=== PATIENT | female | born 1940 | race Caucasian/White ===

== ENCOUNTER 2016-10-15 15:47 | Inpatient (IN) | payer MEDICARE, OTHER ==
[~2016-10-15] VITALS: Ht 160 cm; Wt 60.3 kg
--- NOTE | ~2016-10-15 | PR ---
[place], [place] PROGRESS NOTE [facility]: [facility]BER [facility] [id number] UNIT #: [id number] ROOM: 317 DOCTOR: LIYA COLE MD BIRTHDATE: [birth year] DOS: 10/18/2016 CHIEF COMPLAINT: "I don't know how I wound up here in the hospital, but I would like to leave." SUMMARY OF THE VISIT: The patient was interviewed in the dining area. She reports that she has absolutely no idea how she wound up here in the hospital stating that she was perfectly content at [facility]. A review of the chart indicates, however, that the patient was voicing suicidal ideation with a plan. She seemed totally oblivious to this fact, as I engaged her in conversation this morning and was fixated on being able to return back to [place] as soon as possible. She does report that she is sleeping well and eating well and denies any medication side effects. MENTAL STATUS: She is alert and oriented with time gaps. Mood does seem to be fairly euthymic. Affect is appropriate. There are no symptoms of hypomania or chelsea. There are no overt auditory or visual hallucinations. No delusions are present. Short term memory has gaps. PLAN: I have already started to taper of her Xanax. I will go ahead and continue this taper bringing her from 0.5 mg twice daily to 0.25 mg 3 times a day and continue to progress with the taper and ultimate discontinuation of the Xanax. Maintain her other psychotropics. Engage in individual and soto milieu activity with the plan then to return to [facility] when stable. LIYA COLE MD CM:PNTRANS [id number] LIYA COLE MD 10/18/16 1044 interface
--- NOTE | ~2016-10-15 | WRIGHTHP ---
[place], [place] PATIENT HISTORY AND PHYSICAL EXAM NAME: LEROY WEBER [facility] #: [id number] UNIT #: [id number] ROOM: 317 DOCTOR: YULIA HAWTHORNE BIRTHDATE: [birth year] DOS: 10/15/2016 HISTORY OF PRESENT ILLNESS: This is a 75-year-old female from a local correction admitted here for suicidal ideation. She told the Emergency Room physician that she was to be admitted to the Behavioral Health Unit because of back pain. The patient was very sedated, having difficulty staying awake for proper interview, complains of pain everywhere, history of long-term high dose opioid dependence, coronary artery disease, diabetes, congestive heart failure. PAST MEDICAL HISTORY: Includes anxiety, CHF, chronic pain, COPD, dementia, GERD, hyperlipidemia, hypertension, hypothyroidism, iron deficient anemia, peripheral artery disease, stage 3 chronic kidney disease, type 2 diabetes. DIAGNOSES: Suicidal ideation secondary to major depression and pain. It should be noted the patient was originally has a morphine pain pump or pain ball and when she went to have it refilled, she told that she did not want it refilled, and I think this was the starting of her behaviors. The patient also gets Percocet 325/5, hydrocodone with ibuprofen 7.5/200 and OxyContin along with Xanax and the morphine pump. MENTAL STATUS: The patient is alert and oriented to person, place, approximate time. Mood is very depressed. She is easily irritable. When someone goes to touch her, she screams out in pain. I do not deny that she may be in pain, but I believe that she is embellishing the extent of it at this point in time. There are no overt signs of auditory or visual hallucinations, delusions, paranoia, chelsea or hypomania. Overall, I know she has a diagnosis of dementia, but right now it appears that her memory is intact. I asked her what made her make suicidal statements, and she just said because "I am stupid, I am in pain, and I should not have said no to the morphine and now in this predicament". She then asked if I would fill her morphine pump, and I advised her that the pump could not be filled on this unit, and she then stated that she did not need to be here. She just needs to be discharged so that she can go and have that done. PLAN: We currently have her it looks like the medical doctors start her back on the OxyContin. We have her on vitamin D 50,000 international units. She is also on Remeron 15 mg at bedtime. We have done p.r.n. Vistaril and Geodon. We have her on Namenda 10 mg b.i.d., Exelon 13.3 mg at bedtime and Xanax q.8 hours. I did advise nursing to monitor this and try not to get with the narcotic pain meds at this point in time. With her increase in her BUN and creatinine, she is probably not clearing the meds very well either. The patient stated that she slept fine. We will continue to monitor. I will adjust medications accordingly as needed. [place], [place] PATIENT HISTORY AND PHYSICAL EXAM NAME: LEROY WEBER UNIT #: [id number] ROOM: [facility] DOCTOR: YULIA HAWTHORNE BIRTHDATE: [birth year] MERARY HAWTHORNE CNP CM:HISPHYS:PATIENT HISTORY AND PHYSICAL EXAMINATION [id number] YULIA HAWTHORNE 10/16/16 1205 interface
--- NOTE | ~2016-10-15 | DS ---
[place], [place] DISCHARGE SUMMARY NAME: LEROY WEBER [facility] #: [id number] UNIT #: [id number] ROOM: 317 DOCTOR: LIYA COLE MD BIRTHDATE: [birth year] DOS: 10/19/2016 CHIEF COMPLAINT: "I just might as well be " HISTORY OF PRESENT ILLNESS: This is a 75-year-old white female known to me from a previous psychiatric admission here as well as her stay at [facility] in [place], [place]. The patient is admitted now due to worsening depression with suicidal ideation and a plan. Apparently, the patient was to have her morphine pump filled, but because her daughter left for out of town, the patient became very irate and angry and refused to have that done. This caused an increase in pain as well as some opiate withdrawal symptoms causing her to feel totally out of control and voicing a wish that she were and also stating that she would actively take her life because of the severity of her symptoms, it was felt that an inpatient evaluation was warranted. PAST MEDICAL HISTORY: Remarkable for long-term high dose opioid dependence, coronary artery disease, diabetes, congestive heart failure, COPD, dementia, GERD, hyperlipidemia, hypothyroidism, iron deficiency anemia, chronic kidney disease stage III and diabetes. SUMMARY OF HOSPITAL COURSE: The patient was admitted to the unit where she was restarted back on her opioid, this did cause her to feel much better rather quickly. She maintained on her Remeron 15 mg at bedtime, Exelon 13.3 mg at bedtime, Namenda 10 mg twice daily, Xanax was tapered gradually during her stay to lessen her overall use of addictive agents and the Xanax was brought down from 0.5 mg 3 times a day to 0.25 mg 3 times a day. She tolerated this taper well exhibiting no withdrawal symptoms and stating that there was no increase in her anxiety level. The patient did have a slow and steady improvement while on the unit, voicing improved sleep and appetite and also voicing positive plans for the future. She very convincingly reported that she likes it at [place] and was anxious to go back there. She was discharged then on 10/19/2016 to return back to [place] where I will follow her upon her return there. MENTAL STATUS AT DISCHARGE: The patient was alert and oriented to person, place, and relatively close to time. Mood was strongly trending towards euthymia and affect was more appropriate. There are no symptoms suggestive of chelsea or hypomania. There were no overt auditory or visual hallucinations. No delusions, no paranoia. Short term memory had some mild gaps, otherwise she was intact. FINAL DIAGNOSES: Major depression, recurrent, severe, dysthymic disorder. PLAN: All of her prescriptions have been printed and will be sent with her I will follow her upon her return to [facility] in [place]. [place], [place] DISCHARGE SUMMARY NAME: LEROY WEBER UNIT #: [id number] ROOM: 317 DOCTOR: LIYA COLE MD BIRTHDATE: [birth year] LIYA COLE MD CM:DISCHARG [id number] LIYA COLE MD 10/19/16817 interface
--- NOTE | ~2016-10-15 | PR ---
[place], [place] PROGRESS NOTE [id number] UNIT #: [id number] ROOM: 317 DOCTOR: YULIA HAWTHORNE MERARY BIRTHDATE: [birth year] DOS: 10/17/2016 SUMMARY OF VISIT: The patient assessed in her room where she was getting up for the morning. I had monitored her working with soto milieu. She did pivot appropriately into the wheelchair without moaning or groaning. Nurses' notes it is pretty much whether she is in a wheelchair or bed. She sleeps all day. It should be noted that she is not nearly on as much narcotics that she was at home. Currently receiving OxyContin here, but no [place] or Percocet. I am going to change her Xanax from q. 8 hours to b.i.d. and attempt to wean this. I do not like the benzos being mixed with the narcotics and since she is sleeping all the time, both of them have sedating qualities. She is tolerating all other medications. There is a family dynamic. Apparently, the daughters calling the unit multiple times talking in length about things in the past, basically wanting to be the patient's guardian, POA in control of everything, but the patient is her own person, so there are some family dynamic issues there. She did also mention she warned her mom deemed incompetent. She was advised that she needs to take this up with the [facility], so that the patient can be properly assessed if they feel it is appropriate. The daughter is also advising me when I am to discharge the patient, today or tomorrow. At this point in time, the patient is doing well. There is some depression. I do not know if it is long-term or if it rerouted in her pain. 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 I did advise her yesterday that she would not receive a morphine pump on this unit nor would refill her. It is my understanding she has some kind of morphine pump implanted. MENTAL STATUS: She is alert and oriented to person, place, approximate time, mood, trending towards euthymic. I believe that she sleeps all day because ____ where she comes from and that is what she does. She has been advised that I needed her up and moving around. I do not want her to get pneumonia, I do not want to get a bed sore. I need to see what her limitations are and what she is actually capable of doing for herself. I am not changing any medications today other than decreasing her Xanax and my goal for that would be to actually to wean it off since she is on. It looks like at home or at the [facility], she was on OxyContin, [place]port, Percocet and the morphine pump. We will continue to monitor, engage in individual and soto milieu therapy and will discharge when we feel that she is appropriately stable. [place], [place] PROGRESS NOTE NAME: TIALEROY R UNIT #: [id number] ROOM: [facility] DOCTOR: YULIA HAWTHORNE BIRTHDATE: [birth year] MERARY HAWTHORNE CNP CM:PNTRANS [id number] YULIA HAWTHORNE 10/17/16 1146 interface
[~2016-10-15 15:47] MED LIST: ADVAIR INH; ALDACTONE25 MG PO; AMOXICILLIN500 M2 PO; ANTIVERT12.5 MG PO; BACTROBAN22 TP; BREO ELLIPTA 11 EACH INH; CELEXA10 MG PO; CIPRO500 MG PO; CLONIDINE0.2 MG PO; COREG3.125 MG PO; COREG6.25 MG PO; DESYREL100 MG PO; DITROPAN XL5 MG PO; DOK100 MG PO; DULCOLAX STOOL100 MG PO; DUONEB 3 MG/3 ML3 M1 INH; ENDOCET 325 MG PO; EXEL13.31 T; EXELON4.6 MG/24 TD; EXELON9.5 MG/24 TD; FERREX 150150 MG PO; FLONASE ALLERG9.9 ML NAS; FUROSEMIDE20 M1 PO; GUAIFENESIN600 MG PO; HUMALOG100 U/ML SC; HYDROCODONE BIT1 T11 PO; IRON325 M1 PO; Ipratropium Brom3 ML IH; KCL PO; LACTULOSE20 GM/30 M PO; LANTUS100 U/ML SC; LASIX20 MG PO; LASIX40 MG PO; LEVOFLOXACIN500 MG PO; LIDOCAINE OINTMENT T; LIDODERM 5% PATC1 EA T; LINZESS145 MC1 PO; LISINOPRIL5 MG PO; MIRALAX POWDER17 G1 PO; MIRALAX17 GM PO; MORPHINE PUMP; Motrin,Rufen800 MG PO; NAMENDA XR28 M1 PO; NAMENDA10 MG PO; NASONEX0.05 MG/AC NAS; NITRO PO; OXYGEN NAS; OXYMORPHONE HYD10 M1 PO; PERCOCET 650 MG1 TA1 PO; PLAVIX75 M1 PO; PLAVIX75 MG PO; PRAVACHOL40 MG PO; PREDNISONE10 MG PO; PREVACID30 M1 PO; PRILOSEC20 M1 PO; PROTONIX TR40 MG PO; SAVELLA50 MG PO; SOMA350 MG PO; SPIRIVA INH; STOOL SOFT60 MG/15 M PO; SYMBICORT1 AE1 INH; SYNTHROID0.025 MG PO; Synthroid,Levo50 MCG PO; TRAZODONE100 MG PO; VICOPROFEN PO; VITAMIN C500 M1 PO; VITAMIN D50000 I3 PO; VITAMIN D50000 UNIT PO; XANAX0.25 MG PO; XANAX1 MG PO; ZESTRIL5 MG PO; ZOLOFT100 MG PO; ZYVOX600 MG PO; [UNRECOGNIZED DRUG - OTHER] PO
[2016-10-15] MEDS ORDERED: HUMALOG100 U/ML SC (17:53)
[2016-10-15] MEDS ORDERED: Zofran4 MG PO (18:04)
[2016-10-15] MEDS ORDERED: XANAX0.5 MG PO (18:06)
[2016-10-15] MEDS ORDERED: OXYCONTIN10 M1 PO (18:07)
[2016-10-15] MEDS ORDERED: ADVAIR 500/501 E1 INH (18:09)
[2016-10-15] MEDS ORDERED: LASIX20 MG PO ×2 (18:15→18:16)
[2016-10-15] MEDS ORDERED: LACTULOSE20 GM/30 M PO (18:20)
[2016-10-15] MEDS ORDERED: MELATONIN3 MG PO (18:23)
[2016-10-15] MEDS ORDERED: CLARITIN10 MG PO (18:23)
[2016-10-15] MEDS ORDERED: METFORMIN ER500 MG PO (18:25)
[2016-10-15] MEDS ORDERED: SINGULAIR10 M1 PO (18:26)
[2016-10-15] MEDS ORDERED: PROTONIX40 MG PO (18:31)
[2016-10-15] MEDS ORDERED: POTASSIUM CHLO20 ME3 PO (18:34)
[2016-10-15] MEDS ORDERED: HYDROCODONE-IB1 EACH PO (18:38)
[2016-10-15] MEDS ORDERED: PERCOCET 325 MG1 TA5 PO (18:43)
[2016-10-15 19:40] VITALS: BP 118/68
[2016-10-15 21:38] VITALS: BP 118/68
[2016-10-16 07:14] LABS: BASO % 0.3 % (0.0-1.0); EOS # 0.2 10*3/uL (0.0-0.4); EOS % 2.1 % (1.0-4.0); HEMATOCRIT 33.6 % (37.0-47.0); HEMOGLOBIN 11.3 g/dl (12.0-16.0); LYMPH # 1.8 10*3/uL (1.3-4.4); LYMPH % 25.3 % (27.0-41.0); MEAN CELL VOLUME 85.9 fl (81.0-99.0); MEAN CORPUSCULAR HGB 28.9 pg (27.0-31.0); MEAN CORPUSCULAR HGB CONC 33.6 g/dl (33.0-37.0); MEAN PLATELET VOLUME 11.3 fl (9.6-12.3); MONO # 0.5 10*3/uL (0.1-1.0); MONO % 6.3 % (3.0-9.0); NEUT # 4.7 10*3/uL (2.3-7.9); NEUT % 65.6 % (47.0-73.0); PLATELET COUNT AUTOMATED 192 10*3/uL (130-400); RED BLOOD COUNT 3.91 10*6/uL (4.10-5.10); RED CELL DISTRI WIDTH 13.1 % (0-14.5); WHITE BLOOD COUNT 7.2 10*3/uL (4.8-10.8)
[2016-10-16 07:39] VITALS: BP 137/52
[2016-10-16 07:44] LABS: ALBUMIN 3.1 gm/dl (3.1-4.5); BILIRUBIN, TOTAL 0.4 mg/dl (0.2-1.0); POTASSIUM 4.6 mmol/L (3.5-5.1); TOTAL PROTEIN 6.8 gm/dL (6.4-8.2)
[2016-10-16 07:51] LABS: THYROID STIM HORMONE (HS) 0.653 uIU/ml (0.358-4.75)
[2016-10-16 08:17] LABS: FOLIC ACID 8.57 ng/mL (>5.38)
[2016-10-16 08:18] LABS: VITAMIN D, 25-HYDROXY 57.9 ng/mL (30-100)
[2016-10-16 08:34] LABS: HEMOGLOBIN A1c 7.3 % (4.8-5.6)
[2016-10-16 09:38] VITALS: BP 140/62
[2016-10-16 14:39] LABS: BILIRUBIN NEGATIVE (NEGATIVE); BLOOD NEGATIVE (NEGATIVE); CLARITY CLEAR (CLEAR); COLOR YELLOW (YELLOW); GLUCOSE NEGATIVE (NEGATIVE); KETONE NEGATIVE (NEGATIVE); LEUKO ESTERASE NEGATIVE (NEGATIVE); NITRITE NEGATIVE (NEGATIVE); PROTEIN NEGATIVE (NEGATIVE); UROBILINOGEN 0.2 E.U./dl (0.2-1.0)
[2016-10-16 15:15] LABS: RBC 0-2 rbc/hpf (0-2); URINE REFLEX COMMENT NO (NO)
[2016-10-16 21:49] VITALS: BP 128/74
[2016-10-17 04:11] VITALS: BP 138/72
[2016-10-17 08:13] VITALS: BP 142/70
[2016-10-17 18:37] VITALS: BP 132/62
[2016-10-17 20:01] VITALS: BP 138/64
[2016-10-18 08:00] VITALS: BP 151/64
[2016-10-18 19:54] VITALS: BP 137/57
[2016-10-19] MEDS ORDERED: VITAMIN D50000 I3 PO (07:51)
[2016-10-19] MEDS ORDERED: MEMANTINE HCL10 MG PO (07:51)
[2016-10-19] MEDS ORDERED: EXELON13.3 MG/21 T (07:51)
[2016-10-19] MEDS ORDERED: ALPRAZOLAM0.25 M2 PO (07:51)
[2016-10-19] MEDS ORDERED: MIRTAZAPINE15 M2 PO (07:51)
[2016-10-19] MEDS ORDERED: CARVEDILOL6.25 MG PO (10:12)
[2016-10-19] MEDS ORDERED: OXYCONTIN10 M1 PO (10:12)
[2016-10-19] MEDS ORDERED: HYDROCODONE-IB1 EACH PO (10:12)
[2016-10-19 10:41] VITALS: BP 130/70
== END 2016-10-19 13:45 | disposition other institution (70) | DRG 885 ==
LOC: 3N 15:47
PROVIDERS: Internal Medicine; Psychiatry & Neurology Psychiatry
DX: F33.2 Major depressive disorder, recurrent severe without psychotic features (principal); N17.0 Acute kidney failure with tubular necrosis; F03.90 Unspecified dementia, unspecified severity, without behavioral disturbance, psychotic disturbance, mood disturbance, and anxiety; E11.22 Type 2 diabetes mellitus with diabetic chronic kidney disease; I50.9 Heart failure, unspecified; F11.20 Opioid dependence, uncomplicated; I13.0 Hypertensive heart and chronic kidney disease with heart failure and stage 1 through stage 4 chronic kidney disease, or unspecified chronic kidney disease; I25.10 Atherosclerotic heart disease of native coronary artery without angina pectoris; K21.9 Gastro-esophageal reflux disease without esophagitis; E78.5 Hyperlipidemia, unspecified; J44.9 Chronic obstructive pulmonary disease, unspecified; E03.9 Hypothyroidism, unspecified; N18.3 Chronic kidney disease, stage 3 (moderate); F34.1 Dysthymic disorder; F41.9 Anxiety disorder, unspecified; E11.51 Type 2 diabetes mellitus with diabetic peripheral angiopathy without gangrene; G89.29 Other chronic pain; D50.9 Iron deficiency anemia, unspecified; Z90.49 Acquired absence of other specified parts of digestive tract; Z95.0 Presence of cardiac pacemaker; Z87.891 Personal history of nicotine dependence; Z82.49 Family history of ischemic heart disease and other diseases of the circulatory system; Z88.0 Allergy status to penicillin; Z88.2 Allergy status to sulfonamides; Z88.6 Allergy status to analgesic agent; Z91.041 Radiographic dye allergy status; Z88.8 Allergy status to other drugs, medicaments and biological substances; Z79.899 Other long term (current) drug therapy